=== PATIENT | female | born 1950 | race Caucasian/White ===

== ENCOUNTER 2016-08-13 17:16 | Observation (INO) ==
[2016-08-13] MEDS ORDERED: Aspirin 81 MG TAB.CHEW PO STA (17:49)
--- NOTE | 2016-08-13 17:55 | Emergency Department Note ---
Disposition Clinical Impression: Chest pain Qualifiers: Chest pain type: unspecified Qualified Code(s): R07.9 - Chest pain, unspecified Disposition: Still a Patient Condition: Fair Referrals: Erik Herzog DO [Primary Care Provider] - Forms: ED Satisfaction Letter Time of Disposition: 19:00 General Adult HPI - General Chief complaint: ED Shortness of Breath/Dyspnea Stated complaint: ETTA, low BP, dizziness Time Seen by Provider: 08/13/16 17:37 Source: patient Mode of arrival: ambulatory Limitations: no limitations Nursing Notes Reviewed: Yes Vital Signs Reviewed: Yes - History of Present Illness HPI Narrative: 65-year-old who's had a previous heart attack and comes in complaining of chest pressure and pain. Also states her blood pressures been running low although here it is in the normal range. She also states that she has a headache. 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 Location: head, chest Radiation: non-radiation Pain Severity: moderate Pain Scale: 6 Quality: burning, aching Consistency: constant Improves with: nothing Worsens with: nothing Associated symptoms: Reports: chest pain - Related Data Home Medications Medication Instructions Recorded Confirmed Aspirin 81 mg PO DAILY 12/17/14 01/06/16 Losartan Potassium [Cozaar] 100 mg PO DAILY 12/17/14 01/06/16 Escitalopram [Lexapro] 10 mg PO DAILY 06/12/15 01/06/16 Hydrochlorothiazide 25 mg PO DAILY 01/06/16 01/06/16 Previous Rx's Medication Instructions Recorded DiphenhydraMINE [Benadryl] 50 mg PO Q4HR #30 capsule 01/06/16 Famotidine [Pepcid] 20 mg PO BID #20 tablet 01/06/16 HYDROcodone/Acet 5/325 mg [[place] 1 tab PO Q6H #16 tab 01/06/16 5-325 mg] Ergocalciferol (VITAMIN D2) 50,000 unit PO QWEEK #12 capsule 03/04/16 [Vitamin D2] Cholecalciferol (Vitamin D3) 50,000 unit PO QWEEK #12 capsule 05/26/16 [Vitamin D] Levothyroxine [Synthroid] 1 tab PO DAILY #90 tablet 06/05/16 LORazepam [Ativan] 1 mg PO HS #30 tablet 04/04/17 Allergies Allergy/AdvReac Type Severity Reaction Status Date / Time gabapentin AdvReac See Verified 08/13/16 17:30 Comments All systems ED: reviewed and negative except as stated. Constitutional: Denies: fever, chills, weakness, weight change Eyes: Denies: eye pain, eye discharge, vision change ENT ED: Denies: ear pain, throat pain, dental pain, hearing loss, epistaxis, congestion, dysphagia Cardiovascular: Reports: chest pain. Denies: palpitations, dyspnea on exertion , edema, syncope Respiratory: Denies: cough, dyspnea, wheezes, hemoptysis, stridor Gastrointestinal: Denies: abdominal pain, nausea, vomiting, diarrhea, constipation, hematemesis, melena, hematochezia Genitourinary: Denies: dysuria, frequency, hematuria, discharge Musculoskeletal: Denies: back pain, neck pain, arthralgia, myalgia Integumentary: Denies: rash, abrasion, lesions Neurological: Reports: headache. Denies: weakness, numbness, paresthesias, confusion, abnormal gait, vertigo Psychiatric: Denies: anxiety, depression, suicidal thoughts, homicidal thoughts , auditory hallucinations, visual hallucinations Endocrine: Denies: fatigue Hematological/Lymphatic: Denies: easy bleeding, easy bruising Allergic/Immunologic: Denies: facial swelling, urticaria Past Medical History - Past Medical History Medical history: Reports: cancer, coronary artery disease, hyperlipidemia, hypertension, other Surgical history: Reports: angioplasty/stent, breast surgery, cholecystectomy, other (Fundoplication) Psychiatric history: Reports: depression SURGICAL FIRST ASSISTANT history: Reports: no SURGICAL FIRST ASSISTANT history - Social History Smoking Status: Former smoker Smokeless Tobacco Status: No Alcohol use: Reports: none Drug use: Reports: none Physical Exam - General Limitations: no limitations General appearance: alert, in no apparent distress - Head Head exam: atraumatic, normocephalic, normal inspection - Eye Eye exam: Present: normal appearance, PERRL, EOMI - ENT ENT exam: normal exam, normal oropharynx, mucous membranes moist - Neck Neck exam: Present: normal inspection, full ROM, trachea midline - Chest Chest inspection: Present: normal inspection, symmetric chest wall rise - Respiratory Respiratory exam: Present: normal lung sounds bilaterally - Cardiovascular Cardiovascular exam: Present: regular rate, normal rhythm, normal heart sounds - Abdominal Exam Abdominal exam: Present: soft, Non-Tender. Absent: tenderness, distention, guarding, rebound, rigidity - Extremities Exam Extremities exam: Present: normal inspection, full ROM. Absent: tenderness, pedal edema - Expanded Lower Extremity Exam Neurovascular/Tendon exam: Absent: motor deficit, sensory deficit, tendon deficit Gait: not tested/not observed - Back Exam Back exam: Present: normal inspection, full ROM. Absent: tenderness - Neurological Exam Neurological exam: Present: alert, oriented X3 Course Vital Signs Temperature 97.1 F L 08/13/16 17:28 Pulse Rate 65 08/13/16 17:28 Respiratory Rate 16 08/13/16 17:28 Blood Pressure 145/93 08/13/16 17:28 O2 Sat by Pulse Oximetry 97 08/13/16 17:28 Temperature 97.1 F L 08/13/16 17:28 Pulse Rate 55 08/13/16 18:52 Respiratory Rate 18 08/13/16 18:52 Blood Pressure 121/70 08/13/16 18:52 O2 Sat by Pulse Oximetry 96 08/13/16 18:52 Oxygen Delivery Oxygen Delivery Room Air Medical Decision Making - EKG Data EKG #1 EKG attestation: Yes I reviewed and interpreted this EKG. EKG shows normal: sinus rhythm Rate: bradycardia Rhythm: NSR When compared to previous EKG there are: no significant changes (06/12/2015) Interpretation: nonspecific ST-T wave changes S.B.A.R. - S.B.A.R. Recommendation: Recommendation based on pending studies, treatments, or consults S.B.A.R. Report Given to: Dr. Robertson S.B.AArtemio Repor Time: 19:00
[2016-08-13 19:04] LABS: Basophils # 0.1 K/mcL (0.0-0.2); Basophils % 0.7 %; Eosinophils # 0.1 K/mcL (0.0-0.6); Eosinophils % 1.7 %; Hematocrit 43.5 % (35.3-44.9); Hemoglobin 14.8 g/dL (11.5-15.4); Immature Granulocytes % 0.7 % (0-4); Lymphocytes # 1.6 K/mcL (0.6-4.6); Lymphocytes % 20.7 %; Mean Corpuscular Volume 88.1 fL (83.0-100.0); Mean Platelet Volume 10.3 fL (9.4-12.4); Monocytes # 0.7 K/mcL (0.0-1.3); Monocytes % 8.7 %; Neutrophils # 5.2 K/mcL (1.6-8.9); Platelet Count 248 K/mcL (140-400); Red Blood Count 4.94 M/mcL (3.82-4.97); Red Cell Distribution Width 12.9 % (11.5-14.5); Segmented Neutrophils % 67.5 %
[2016-08-13 19:11] LABS: INR 1.1
[2016-08-13 19:14] LABS: Activated Partial Thrombo Time 29.9 Seconds (26.0-36.0)
[2016-08-13 19:18] LABS: BUN/Creatinine Ratio 20 (6-26); Blood Urea Nitrogen 18 mg/dL (7-20); Calcium 9.4 mg/dL (8.6-10.8); Carbon Dioxide 22 mEq/L (19-29); Chloride 104 mEq/L (98-109); Glucose 85 mg/dL (70-99); Osmolality,Calculated 287 (280-300); Sodium 138 mEq/L (136-145); eGFR For African Americans > 60 (> 60); eGFR For Non-African Americans > 60 (> 60)
--- NOTE | 2016-08-13 20:55 | Emergency Department Note ---
Disposition Clinical Impression: Chest pain Qualifiers: Chest pain type: unspecified Qualified Code(s): R07.9 - Chest pain, unspecified Disposition: Admitted As Inpatient Condition: Good Referrals: Erik Herzog DO [Primary Care Provider] - Forms: ED Satisfaction Letter Time of Disposition: 20:53 General Adult HPI - General Chief complaint: ED Shortness of Breath/Dyspnea Stated complaint: ETTA, low BP, dizziness Time Seen by Provider: 08/13/16 17:37 Source: patient Mode of arrival: ambulatory Limitations: no limitations - History of Present Illness Location: head, chest Pain Scale: 6 Quality: burning, aching Improves with: nothing Worsens with: nothing Associated symptoms: Reports: chest pain - Related Data Home Medications Medication Instructions Recorded Confirmed Aspirin 81 mg PO DAILY 12/17/14 08/13/16 Losartan Potassium [Cozaar] 100 mg PO DAILY 12/17/14 08/13/16 CloNIDine HCl 0.1 mg PO BID 08/13/16 08/13/16 Cyanocobalamin (Vitamin B-12) 1,000 mcg PO DAILY 08/13/16 08/13/16 [Vitamin B12] Ergocalciferol (VITAMIN D2) 50,000 unit PO WE 08/13/16 08/13/16 [Vitamin D2] Escitalopram [Lexapro] 20 mg PO DAILY 08/13/16 08/13/16 Furosemide [Lasix] 20 mg PO BID PRN 08/13/16 08/13/16 Levothyroxine [Synthroid] 75 mcg PO QAM 08/13/16 08/13/16 Previous Rx's Medication Instructions Recorded LORazepam [Ativan] 1 mg PO HS #30 tablet 08/12/16 Allergies Allergy/AdvReac Type Severity Reaction Status Date / Time gabapentin AdvReac See Verified 08/13/16 17:30 Comments naproxen AdvReac Edema Verified 08/13/16 20:25 Constitutional: Denies: fever, chills, weakness, weight change Eyes: Denies: eye pain, eye discharge, vision change ENT ED: Denies: ear pain, throat pain, dental pain, hearing loss, epistaxis, congestion, dysphagia Cardiovascular: Reports: chest pain. Denies: palpitations, dyspnea on exertion , edema, syncope Respiratory: Denies: cough, dyspnea, wheezes, hemoptysis, stridor Gastrointestinal: Denies: abdominal pain, nausea, vomiting, diarrhea, constipation, hematemesis, melena, hematochezia Genitourinary: Denies: dysuria, frequency, hematuria, discharge Musculoskeletal: Denies: back pain, neck pain, arthralgia, myalgia Integumentary: Denies: rash, abrasion, lesions Neurological: Reports: headache. Denies: weakness, numbness, paresthesias, confusion, abnormal gait, vertigo Psychiatric: Denies: anxiety, depression, suicidal thoughts, homicidal thoughts , auditory hallucinations, visual hallucinations Endocrine: Denies: fatigue Hematological/Lymphatic: Denies: easy bleeding, easy bruising Allergic/Immunologic: Denies: facial swelling, urticaria Past Medical History - Past Medical History Medical history: Reports: cancer, coronary artery disease, hyperlipidemia, hypertension, other Surgical history: Reports: angioplasty/stent, breast surgery, cholecystectomy, other (Fundoplication) Psychiatric history: Reports: depression COMMISSIONING MANAGER history: Reports: no COMMISSIONING MANAGER history - Social History Smoking Status: Former smoker Smokeless Tobacco Status: No Alcohol use: Reports: none Drug use: Reports: none Physical Exam - General Limitations: no limitations General appearance: alert, in no apparent distress Course Vital Signs Temperature 97.1 F L 08/13/16 17:28 Pulse Rate 65 08/13/16 17:28 Respiratory Rate 16 08/13/16 17:28 Blood Pressure 145/93 08/13/16 17:28 O2 Sat by Pulse Oximetry 97 08/13/16 17:28 Temperature 97.1 F L 08/13/16 17:28 Pulse Rate 55 08/13/16 18:52 Respiratory Rate 18 08/13/16 18:52 Blood Pressure 121/70 08/13/16 18:52 O2 Sat by Pulse Oximetry 96 08/13/16 18:52 Oxygen Delivery Oxygen Delivery Room Air Medical Decision Making - Lab Data Result diagrams: 08/13/16 18:20 08/13/16 18:20 Lab Results 08/13/16 08/13/16 08/13/16 Range/Units 18:20 18:20 18:20 WBC 7.6 (4.3-11.1) K/mcL RBC 4.94 (3.82-4.97) M/mcL Hgb 14.8 (11.5-15.4) g/dL Hct 43.5 (35.3-44.9) % MCV 88.1 (83.0-100.0) fL MCH 30.0 (28.0-33.3) pg MCHC 34.0 (31.6-35.5) g/dL RDW 12.9 (11.5-14.5) % Plt Count 248 (140-400) K/mcL MPV 10.3 (9.4-12.4) fL Immature Gran % 0.7 (0-4) % Seg Neutrophils % 67.5 % Lymphocytes % 20.7 % Monocytes % 8.7 % Eosinophils % 1.7 % Basophils % 0.7 % Neutrophils # 5.2 (1.6-8.9) K/mcL Lymphocytes # 1.6 (0.6-4.6) K/mcL Monocytes # 0.7 (0.0-1.3) K/mcL Eosinophils # 0.1 (0.0-0.6) K/mcL Basophils # 0.1 (0.0-0.2) K/mcL PT (9.4-12.1) Seconds INR APTT (26.0-36.0) Seconds Sodium 138 (136-145) mEq/L Potassium 4.0 (3.5-4.5) mEq/L Chloride 104 (98-109) mEq/L Carbon Dioxide 22 (19-29) mEq/L BUN 18 (7-20) mg/dL Creatinine 0.88 (0.57-1.11) mg/dL Est GFR ( Amer) > 60 (> 60) Est GFR (Non-Af Amer) > 60 (> 60) BUN/Creatinine Ratio 20 (6-26) Glucose 85 (70-99) mg/dL Calculated Osmolality 287 (280-300) Calcium 9.4 (8.6-10.8) mg/dL Troponin I 0.00 (0-0.03) ng/mL B-Natriuretic Peptide (0-100) pg/mL 08/13/16 08/13/16 Range/Units 18:20 18:20 WBC (4.3-11.1) K/mcL RBC (3.82-4.97) M/mcL Hgb (11.5-15.4) g/dL Hct (35.3-44.9) % MCV (83.0-100.0) fL MCH (28.0-33.3) pg MCHC (31.6-35.5) g/dL RDW (11.5-14.5) % Plt Count (140-400) K/mcL MPV (9.4-12.4) fL Immature Gran % (0-4) % Seg Neutrophils % % Lymphocytes % % Monocytes % % Eosinophils % % Basophils % % Neutrophils # (1.6-8.9) K/mcL Lymphocytes # (0.6-4.6) K/mcL Monocytes # (0.0-1.3) K/mcL Eosinophils # (0.0-0.6) K/mcL Basophils # (0.0-0.2) K/mcL PT 12.0 (9.4-12.1) Seconds INR 1.1 APTT 29.9 (26.0-36.0) Seconds Sodium (136-145) mEq/L Potassium (3.5-4.5) mEq/L Chloride (98-109) mEq/L Carbon Dioxide (19-29) mEq/L BUN (7-20) mg/dL Creatinine (0.57-1.11) mg/dL Est GFR ( Amer) (> 60) Est GFR (Non-Af Amer) (> 60) BUN/Creatinine Ratio (6-26) Glucose (70-99) mg/dL Calculated Osmolality (280-300) Calcium (8.6-10.8) mg/dL Troponin I (0-0.03) ng/mL B-Natriuretic Peptide 23 (0-100) pg/mL Attestation Statement - Attestation Attestation: Dr Robertson note: Pt re evaluated s/p sign out from Dr García; pain free; bp stable; chronic bradycardia, on Clonidin and Losartan; labs stable; accepted for admission to Dr Gaming at 8:50 pm;
[2016-08-13] MEDS ORDERED: Naloxone 0.4 MG/ML INJ IVP PRN (23:22)
[2016-08-13] MEDS ORDERED: Ondansetron 4 MG/2 ML VIAL IVP PRN (23:22)
[2016-08-13] MEDS ORDERED: Ibuprofen 400 MG TABLET PO PRN (23:22)
[2016-08-13] MEDS ORDERED: *HR* HYDROcodone/Acet 5/325 mg TABLET PO PRN (23:22)
[2016-08-13] MEDS ORDERED: *HR* Morphine 2 MG/ML SYRINGE IVP PRN (23:22)
[2016-08-13] MEDS ORDERED: Nitroglycerin 0.4 MG TAB.SUBL SL PRN (23:54)
--- NOTE | 2016-08-13 23:54 | Internal Med History&Physical ---
<Raoul Be - Last Filed: 08/14/16 02:52> Date of Encounter: 08/14/16 Time of Encounter: 23:15 Assessment and Plan (1) Hypotension Current visit: Yes Status: Acute Patient presents describing symptoms of hypotension, as well as reporting hypotension one blood pressure taken at home. Recently started on spironolactone, but stopped 2 days ago. Patient also placed on clonidine several months ago. Patient complains of blurriness of vision, lightheadedness , dizziness, headache, chest discomfort. These are likely related to patient hypotension, we given description of chest pressure being similar to that of her previous [place] will further evaluate. Patient appeared to be positive and orthostatics, with drop in diastolic blood pressure and return of symptoms. Patient describes chest pressure as similar to that of previous AZ. She reports her last catheterization was in 2011 was clean at that time, she had received 1 stent previously in 2007. Given length of time since prior catheterization, will obtain stress test to further evaluate. 500 mL normal saline bolus We will obtain urinalysis Tylenol as needed for headache We will hold patient spironolactone We will continue patient clonidine for concern of rebound hypertension We will check TSH We will obtain an echocardiogram and exercise stress test given the concerns of coronary artery disease We will continue to trend troponins We will check CBC, CMP, magnesium, phosphorus in the morning Continue to monitor patient on telemetry and pulse oximetry Qualifiers: Hypotension type: unspecified hypotension type Qualified Code(s): I95.9 - Hypotension, unspecified (2) Chest pain Current visit: Yes Status: Acute Plan as above Qualifiers: Chest pain type: unspecified Qualified Code(s): R07.9 - Chest pain, unspecified (3) Hypothyroid Current visit: No Status: Acute Continue home Synthroid Qualifiers: Hypothyroidism type: subclinical iodine-deficiency Qualified Code(s): E02 - Subclinical iodine-deficiency hypothyroidism (4) DVT prophylaxis Current visit: Yes Status: Acute 5000 units heparin subcutaneous 3 times a day Internal Medicine - H&P: HPI Chief complaint: Hypotension, dizziness, chest pressure Admitted From: Home Plans for Post Hospital Care: Home History of present illness: Ms. Mcguire is a 65 year old female with prior medical history significant for breast cancer, CAD with prior AZ in 2007, hypertension, lichen planus, cholecystectomy, and previous fundoplication presents to [facility] after over 24 hours of lightheadedness, dizziness, hypotension, and chest pressure. With these a Suches also been having a headache, blurry vision, and weakness. These symptoms are all exacerbated by standing up too quickly. She describes the headache as 7/10 in severity and located behind both of her eyes. She describes the chest pain as substernal, 6/10 severity, nonradiating, not associated with nausea, numbness, tingling, or diaphoresis. She does see the chest pain is similar to the pain she had when she had a heart attack in 2007. She says nothing has made it better and nothing has made it worse, but has been constant the last 24+ hours. She states that recently she has had decreased appetite for unknown reason, but this has led her to decreased by mouth. Recently, she has had some changes in blood pressure medication that prompted her to be very vigilant at home of her blood pressures. She states this started 2 months ago when she found she had a blood pressure 157/67. She called her ambulette driver (who she had been seen because of her palpitations) and was placed on twice a day clonidine at that time. Her next appointment was with her PCP a month and half later and she was started on spironolactone at that time. This was about 2 weeks ago, when she began having symptoms 24+ hours ago she had called her PCP and spironolactone was stopped. Since that point in time she is seen and no improvement in her symptoms. Past Med Surg Social Fam HX - Past Medical History Medical history: cancer, coronary artery disease, hyperlipidemia, hypertension, other Psychiatric history: depression - Past Surgical History Surgical History: angioplasty/stent, breast surgery, cholecystectomy, other - Social History Smoking Status: Former smoker Smokeless Tobacco Status: No Alcohol use: none Drug use: none - Family History Mother Hx Family Cancer: Yes (breast) Sister Hx Family Cancer: Yes (breast lymphoma) Internal Medicine - H&P: Meds Aspirin 81 mg PO DAILY 12/17/14 [History] Losartan Potassium [Cozaar] 100 mg PO DAILY 12/17/14 [History] LORazepam [Ativan] 1 mg PO HS #30 tablet 08/12/16 [Rx] CloNIDine HCl 0.1 mg PO BID 08/13/16 [History] Cyanocobalamin (Vitamin B-12) [Vitamin B12] 1,000 mcg PO DAILY 08/13/16 [History ] Ergocalciferol (VITAMIN D2) [Vitamin D2] 50,000 unit PO WE 08/13/16 [History] Escitalopram [Lexapro] 20 mg PO DAILY 08/13/16 [History] Furosemide [Lasix] 20 mg PO BID PRN 08/13/16 [History] Levothyroxine [Synthroid] 75 mcg PO QAM 08/13/16 [History] Allergies gabapentin Adverse Reaction (Verified 08/13/16 17:30) See Comments swelling and lymphedema naproxen Adverse Reaction (Verified 08/13/16 20:25) Edema - Constitutional Constitutional: anorexia, weakness, no chills, no fever(s), no weight loss - EENT Eyes: as per HPI, blurry vision, no loss of vision, no pain, no photophobia Nose, mouth and throat: no dysphagia, no nasal discharge, no neck pain, no sore throat - Cardiovascular Cardiovascular ROS IM: as per HPI, chest pain, lightheadedness, palpitations, no diaphoresis, no dyspnea, no syncope - Respiratory Respiratory: no cough, no dyspnea, no wheezing, no excessive phlegm production - Gastrointestinal Gastrointestinal: as per HPI, abdominal pain (chronic), constipation, no diarrhea, no hematemesis, no hematochezia, no melena, no nausea, no vomiting - Genitourinary Genitourinary: no dysuria, no hematuria - Musculoskeletal Musculoskeletal ROS IM: no numbness, no tingling - Integumentary Integumentary IM: no rash, no unusual bruising - Neurological Neurological ROS: no confusion, no convulsions, no focal weakness, no numbness, no tingling, no tremor(s) - Hematologic/Lymphatic Hematologic/Lymphatic: no easy bruising - Constitutional Vitals: Temp Pulse Resp BP Pulse Ox 98.0 F 61 16 103/69 93 08/13/16 23:26 08/13/16 23:26 08/13/16 23:26 08/13/16 23:26 08/13/16 23:26 Exam: General: Cooperative, pleasant, no acute distress, alert and oriented 3, answers questions appropriately, return of symptoms when standing during check orthostatic vitals Head: Normocephalic, atraumatic Eye: Conjunctiva pink, sclera anicteric, EOMI, PERRL Neck: Supple, trachea midline, mucosa moist, no erythema or exudates in oropharynx Respiratory: No accessory muscle usage, clear to auscultation bilaterally, no wheezes/rhonchi/rales appreciated Cardiovascular: Bradycardia, S1 and S2 present, no murmurs/rubs/gallops/clicks appreciated GI/abdominal: Nondistended, diffuse, mild tenderness, soft, normal bowel sounds , no peritoneal signs Extremities: No calf tenderness, noncyanotic, no pedal edema appreciated, warm, lower extremity pulses palpable and symmetrical Neurological: Alert and oriented 3, no facial droop, no focal deficits Skin: Dry, intact, normal color Internal Med - H&P Results - Labs CBC & Chem 7: 08/13/16 18:20 08/13/16 18:20 <Rosanna Boykin - Last Filed: 08/14/16 10:41> Date of Encounter: 08/13/16 Internal Medicine - H&P: HPI History of present illness: Ms. Mcguire is a 65 year old female All Systems PM: A 10-system review of systems was performed and is negative for pertinent findings except as documented above in the HPI. - Constitutional Vitals: Temp Pulse Resp BP Pulse Ox 97.9 F 55 16 123/84 96 08/14/16 04:26 08/14/16 04:26 08/14/16 04:26 08/14/16 04:26 08/14/16 04:26 Internal Med - H&P Results - Labs CBC & Chem 7: 08/13/16 18:20 08/13/16 18:20 Labs: Cardiac Enzymes 08/14/16 08/14/16 Range/Units 00:35 06:26 Troponin I 0.00 0.00 (0-0.03) ng/mL - Attending Attestation I performed a history and physical examination of the patient and discussed management with the resident. I reviewed the residents note and agree with the documented findings and plan of care, with additions as below. 65 year old female with prior medical history significant for CAD with prior AZ in 2007, hypertension presented with chest pressure, dizziness and headache. O/ E: cardiac; RRR; No gross localizing deficits. EKG: Sinus bradycardia with heart rate of 59/min. CXR: unremarkable. 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 A/P: chest pain: trend troponins; telemetry monitoring. Stress test. Hypotension : orthostatic vitals; IV fluids; hold antihypertensives. Headache is likely due to volume depletion. Possible meningioma Pt has h/o breast cancer. Will consult oncologist for advice for further advice, to exclude metastatic disease.
[2016-08-14] MEDS ORDERED: 0.9 % Sodium Chloride 500 ML IVC ONE ×2 (00:11→01:22)
[2016-08-14 02:13] LABS: Chol/HDL Ratio 5.2 (0-4.9); Magnesium 2.1 mg/dL (1.6-2.6); Phosphorous 3.7 mg/dL (2.3-4.7)
[2016-08-14 02:35] LABS: Thyroid Stimulating Hormone 12.076 mcIU/mL (0.350-4.840)
[2016-08-14] MEDS: *HR* Heparin 5,000 UNIT/ML VIAL SQ SCH ×3 (05:43→21:34)
[2016-08-14] MEDS: Pantoprazole 40 MG VIAL IVP SCH (05:43)
[2016-08-14] MEDS: *HR* Morphine 2 MG/ML SYRINGE IVP PRN ×2 (07:05→10:31)
[2016-08-14 07:27] LABS: Thyroid Stimulating Hormone 15.466 mcIU/mL (0.350-4.840)
[2016-08-14] MEDS ORDERED: Regadenoson 0.4 MG/5 ML SYRINGE IVP ONE ×2 (08:09→08:10)
--- NOTE | 2016-08-14 10:03 | ECHO - Doppler Report ---
Echocardiogram Name: Ten Mcguire Date of Study: 08/14/2016 Date: 1950 Ht: 63.0 in Medical Record#: [id number] Age: 65 Wt: 196.0 lb Gender: Female BSA: 1.92 Order #: [id number] Location: [facility] Room #: [id number] Reading Physician: Marii Fang DO Stock Broker Supervisor: Maury Nevarez Ordering Physician: Raoul Be DO Primary Physician: Indications: Acute coronary syndrome Impressions: LVEF 65%. Normal LV wall motion. Normal left ventricular size and systolic function. There is evidence of mild diastolic dysfunction of the left ventricle. Normal right ventricular size and function. Mild mitral regurgitation. No pulmonary hypertension. Left Ventricular Wall Motion: Rest Echo Findings All wall segments showed normal motion. Findings: Study Quality * Technically adequate exam. ECG Findings * Sinus bradycardia. Left Ventricle * Normal LV chamber size, wall thickness and function. * Mild left ventricular diastolic dysfunction. * LVEF 65%. Mitral Valve * Normal mitral valve structure. * No mitral stenosis. * Mild mitral regurgitation. Aorta * Normally sized aortic root. Aortic Valve * No aortic regurgitation. * Aortic valve not well visualized. * No aortic stenosis. Tricuspid Valve * Tricuspid valve not well visualized. * No tricuspid regurgitation. * Estimated RA pressure is 3 mmHg. * No pulmonary hypertension. Pulmonic Valve * Pulmonic valve is not well visualized. * No pulmonic stenosis. * Trace pulmonic regurgitation. Pulmonary Artery * Pulmonary artery not well visualized. Right Ventricle * Normal right ventricular structure and function. Right Atrium * Normal right atrial size. Left Atrium * Moderately dilated left atrium. Interatrial Septum * No evidence of PFO by color Doppler. IVC * Normal IVC dimensions and inspiratory collapse. Pericardium * There is no pericardial effusion present. History Hypertension Family History of CAD History of CAD/PTCA Myocardial Infarction Coronary Artery Bypass Graft 07/28/2013 a Previous Echo was performed. Measurements: BP: 123/ 84 2D Normal Values RVIDd: 3.24 cm <2.7 cm IVSd: 1.20 cm 0.6 - 1.0 cm LVIDd: 5.10 cm 3.7 - 5.6 cm LVPWd: .91 cm 0.6 - 1.1 cm LVIDs: 2.76 cm 1.5 - 3.6 cm AO: 2.30 cm < 4.0 cm LA: 4.10 cm 2.0 - 4.0cm %FS: 45.90 cm >25 % LA volume: 76 Mitral Valve Peak E:.58 m/sec Peak A:.59 m/sec E/A Ratio:1 Peak E' Lat David:10.9 cm/s Peak E' Med David:8.58 cm/s E/E' Lat Ratio:5.3 E/E' Med Ratio:6.8 Tricuspid Valve TV Regurg Peak Grad: 7.00mmHg TV Regurg Peak David: 1.34m/sec Updated by Marii Fang on 08/14/2016 9:58:24 AM electronically signed on 08/14/2016 9:59:12 AM with status of Final Wall Motion [place]: 1=Normal, 2=Hypokinesis, 3=Akinesis, 4=Dyskinesis, 5=Aneurysmal, 6=Hyperkinetic, X=Not Visualized (Blank)=Missing
[2016-08-14] MEDS: Acetaminophen 325 MG TABLET PO PRN ×2 (10:31→20:17)
[2016-08-14] MEDS: cloNIDine HCl 0.1 MG TABLET PO SCH ×2 (10:31→21:34)
[2016-08-14] MEDS: Aspirin 81 MG TAB.CHEW PO SCH (10:32)
--- NOTE | 2016-08-14 11:37 | Nuclear Medicine Stress Report ---
Regadenoson Nuclear Stress Name: Ten Mcguire Date of Study: 08/14/2016 Date: 1950 Ht: 63.0 in Medical Record#: [id number] Age: 65 Wt: 196.0 lb Gender: Female Order #: [id number] Location: [facility] Room: [facility] Supervising Provider: Chon Sage CNP Reading Physician: Marii Fang DO Ordering Physician: Marlee Reynolds CNP Primary Care Physician: Same as Ordering Provider Stress Technologist: Ines Woodruff, CHERRY Application Support Technician: Vipin Welsh Indications: Chest Pain, Shortness of breath Impression: Perfusion imaging was negative for ischemia or infarct. No appreciable change in pharmacologic ECG from baseline. Patient had 7/10 chest pain prior to start of study, increasing to 10/10 with pharmacologic infusion which is not diagnostic. Normal gated EF. Recommend clinical correlation. History: Hypertension Prior PCI Stress Test Summary: Stress Test Type: Pharmacologic Baseline Information: Initial Heart Rate: 54 Blood Pressure: 140/88 Stress Information: Test Terminated Due to (primary): As per protocol Maximum Blood Pressure: 138/68 Maximum Heart Rate: 74 Percent Maximum Heart Rate Achieved: 47 Double Product: [id number] METS Reached: 1 Symptoms: Chest pain Nuclear Summary: SPECT myocardial perfusion imaging using Tc99m Sestamibi given intravenously was performed at rest and following cardiac stress testing. The resting images were obtained following initial dose of 11.1 mCi. Following stress an additional dose of 34.3 mCi was given at peak exercise or 30 seconds post regadenoson infusion. Medication Given: Time Medication Dose Units Route Findings: Stress Note * Resting ECG demonstrated normal sinus rhythm with flat ST segments and abnormal T waves throughout. * No arrhythmias were noted during stress. * No appreciable change in pharmacologic ECG from baseline. * Patient described 7/10 chest pain prior to study, increasing to 10/10 during pharmacologic stress. Hemodynamic responses * Normal hemodynamic responses to pharmacologic stress. Study Quality * Study quality is good. Gated EF > 70% * Gated EF > 70%. Left Ventricle * The left ventricle is not dilated. TID * No evidence of transient ischemic dilatation. Lung Uptake * There is no evidence of increase lung uptake. NORMALS * Normal wall motion. * Normal segmental perfusion in stress. * Normal Segmental Perfusion in rest. Updated by Marii Fang on 08/14/2016 11:29:31 AM electronically signed on 08/14/2016 11:31:41 AM with status of Final
--- NOTE | 2016-08-14 13:27 | Electrocardiograph Report ---
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
--- NOTE | 2016-08-14 13:37 | Electrocardiograph Report ---
[place] [address] Test Date: 2016-08-14 Pat Name: Ten Mcguire Department: 113 Room: 3B Gender: F System Consultant: : 1950 Requested By: Marlee Reynolds Order Number: [id number] Reading MD: Chuck Branham MD Measurements Intervals [place] Rate: 48 P: 55 OR: 122 QRS: 21 QRSD: 86 T: 6 QT: 444 QTc: 410 Interpretive Statements SINUS BRADYCARDIA WITH SINUS ARRHYTHMIA Electronically Signed On 08-14-2016 13:36:17 EDT by Chuck Branham MD
[2016-08-14] MEDS ORDERED: Cosyntropin 250 MCG/2 ML VIAL IVP ONE (20:27)
--- NOTE | 2016-08-14 20:36 | Internal Med Progress Note ---
Date of Encounter: 08/14/16 Time of Encounter: 17:45 (x45 minutes) - Assessment and plan (1) Headache Current Visit: Yes Status: Acute Assessment and plan: Patient endorsing intermittent, severe headaches over the past 2 days. She states that she never gets headaches in the past. Headaches are associated with blurred vision in the feeling that she is off balance with ambulation. Head CT negative for acute processes and revealing her meningioma. Concern for possible metastasis of her breast cancer that she had approximately 4 years ago. Spoke to oncology who knows this patient very well, will obtain a brain MRI. ITS Impressions Head CT 08/13/16 17:50 IMPRESSION: No acute intracranial abnormality. Probable 14 mm meningioma adjacent to the tentorium cerebelli D/ / Mike Gama MD / Mike Gama MD Interpreting Provider: Mike Gama MD (2) History of Pippa fundoplication Current Visit: Yes Status: Chronic (3) Calcified cerebral meningioma Current Visit: Yes Status: Chronic (4) Vertigo Current Visit: Yes Status: Resolved Assessment and plan: Currently asymptomatic, brain MRI pending. (5) Anorexia Current Visit: Yes Status: Acute Assessment and plan: Patient stating she has not been able to eat for the past 2 weeks. She denies nausea or vomiting but states she simply does not have an appetite. (6) Seroma of breast Current Visit: No Status: Chronic (7) Hypothyroid Current Visit: No Status: Chronic Assessment and plan: TSH elevated, free T4 normal. Synthroid dosage increased. (8) Chest pain Current Visit: Yes Status: Ruled-out Assessment and plan: Patient currently endorsing left-sided chest pain and epigastric pain. She states this is normal then her regular reflux pain. ACS ruled out. Echocardiogram unremarkable with ejection fraction of 65%. Stress test negative for ischemia or infarct. We will continue to investigate other causes that are noncardiac in etiology. Qualifiers: Chest pain type: unspecified Qualified Code(s): R07.9 - Chest pain, unspecified (9) DVT prophylaxis Current Visit: Yes Status: Acute Assessment and plan: Subcutaneous heparin (10) Hypotension Current Visit: Yes Status: Resolved Assessment and plan: Patient stating she was started on clonidine one month ago for her diastolic blood pressures being in the 130s. Then approximately 2 weeks ago, she was started on spironolactone. She is currently normotensive but her blood pressures have been fluctuating since admission. Orthostatic vital signs unremarkable. Currently, she is only on clonidine 0.1 mg twice a day. Holding her losartan and spironolactone. Unclear causation at this time. ACTH stem test and aldosterone levels are pending. Renal function is normal. Qualifiers: Hypotension type: unspecified hypotension type Qualified Code(s): I95.9 - Hypotension, unspecified (11) Breast cancer, right Current Visit: No Status: Chronic Assessment and plan: Oncology has been brought on board as she is known well to their service. Concerning symptoms include severe headache 2 days associated with imbalance and vision changes. Brain MRI pending. Patient is also anorexic and has not been able to refill last 2 weeks so there is also a concern for possible metastases to her brain and possibly to her abdomen. Abdominal CT also pending. Her breast cancer has been complicated by lymphedema, chronic seroma of her breast, and a rather sizable blood clot after her breast surgery. - Subjective Interval history: Patient seen and examined. On examination, patient saying she feels "no better than when I came here." She states she continues to have intermittent, severe headaches that started 2 days ago. She states she continues to feel lightheaded and dizzy intermittently. She also continues to have left-sided chest pain and epigastric abdominal pain. She states she continues to feel off balance. She is also endorsing a severe dry mouth. - Constitutional Vitals: Temp Pulse Resp BP Pulse Ox 98.2 F 51 12 111/72 97 08/14/16 18:59 08/14/16 18:59 08/14/16 18:59 08/14/16 18:59 08/14/16 18:59 General appearance: Present: A&O X 3, pleasant, no acute distress, answers questions appropriately - Head Head exam: Present: atraumatic, normocephalic - Eye Eye exam: Present: EOMI, PERRL, conjuntiva pink, sclera anicteric Pupils: Present: PERRL - Neck Neck exam general surgery: Present: supple, trachea midline. Absent: lymphadenopathy - Respiratory Respiratory exam: Present: chest wall tenderness, CTAB. Absent: accessory muscle use, rales, respiratory distress, rhonchi, wheezes - Cardiovascular Cardiovascular exam: Present: RRR, +S1, +S2. Absent: diastolic murmur, gallop, rubs, systolic murmur - GI/Abdominal GI/Abdominal exam: Present: normal bowel sounds, soft, tenderness (epigastric), no peritoneal signs. Absent: distended - Extremities Exam Extremities exam: Present: warm, radial pulses palpable and symetrical. Absent : calf tenderness, cyanotic, pedal edema - Neurological Exam Neurological exam: Present: alert, CN II-XII intact, oriented X3, no focal deficits, strengths equal and symetr throughout. Absent: pronater drift, facial droop, speech deficit - Expanded Neurological Exam Neurological exam expanded: Present: protecting the airway Patient oriented to: Present: person, place, time Speech: Present: fluid speech Cranial Nerves: EOM's intact PM: Normal Neuro motor strength exam: LUE: 5, RUE: 5, LLE: 5, RLE: 5 Coma Scale Eye Opening: Spontaneous Coma Scale Motor Response: Obeys Commands Coma Scale Verbal Response: Oriented Coma Scale Total: 15 - Skin Skin exam: Present: dry, intact, pallor, warm Internal Medicine: Result - Labs CBC & Chem 7: 08/13/16 18:20 08/13/16 18:20 Labs: Cardiac Enzymes 08/14/16 08/14/16 Range/Units 00:35 06:26 Troponin I 0.00 0.00 (0-0.03) ng/mL - ABG Interpretation ABG results: PT/INR, D-dimer PT 12.0 Seconds (9.4-12.1) 08/13/16 18:20 - VTE Reasons for not Prescribing Prophylaxis: Treatment not Indicated - Low risk for VTE Consult Discharge Plan - Plan Referrals: Erik Herzog DO [Primary Care Provider] -
[2016-08-14] MEDS: *HR* LORazepam 1 MG TABLET PO SCH (21:34)
[2016-08-14 23:18] LABS: Bilirubin,Urine Negative (Negative); Blood,Urine Negative (Negative); Clarity,Urine Clear (Clear); Color,Urine Yellow (Yellow); Glucose,Urine (UA) Normal (Normal); Ketones,Urine Negative (Negative); Leukocyte Esterase,Urine Small (Negative); Nitrite,Urine Negative (Negative); Protein,Urine Negative (Neg-Trace); Specific Gravity,Urine > 1.030 (1.010-1.025); Urobilinogen,Urine Normal (Normal)
[2016-08-14 23:20] LABS: Bacteria,Urine None Seen per hpf (None-Few); Hyaline Casts,Urine None Seen per lpf (None-Few); Squamous Epithelial Cell,Urine Many per lpf (None-Few); WBC,Urine 15-30 per hpf (0-3)
[2016-08-15] MEDS: *HR* Morphine 2 MG/ML SYRINGE IVP PRN ×3 (00:03→12:39)
[2016-08-15] MEDS: Pantoprazole 40 MG VIAL IVP SCH (06:23)
[2016-08-15] MEDS: *HR* Heparin 5,000 UNIT/ML VIAL SQ SCH ×3 (06:23→21:09)
[2016-08-15] MEDS: cloNIDine HCl 0.1 MG TABLET PO SCH ×2 (08:35→21:03)
[2016-08-15] MEDS: Aspirin 81 MG TAB.CHEW PO SCH (08:36)
[2016-08-15] MEDS ORDERED: Ketorolac 30 MG/ML VIAL IVP ONE (16:05)
[2016-08-15] MEDS ORDERED: Prochlorperazine 10 MG/2 ML VIAL IVP ONE (16:05)
--- NOTE | 2016-08-15 16:37 | Oncology Inp Consult Note ---
<Camilo Dixon Jr - Last Filed: 08/15/16 16:51> Date of Encounter: 08/15/16 Time of Encounter: 15:45 Assessment and Plan (1) History of breast cancer Status: Acute Assessment and plan: The patient is a very pleasant 64-year-old female well-known to the [facility]. The patient had diagnosis of right breast cancer in August 2012. She was given radiation only without chemotherapy, and she had a lumpectomy as well. Treated by Dr. Victor. She is now on 6 month surveillance visits for her breast cancer. The last visit was 02/24/2016, the patient was seen by me. Next surveillance visit is scheduled for 08/21/2016 here at the cancer center with Dr Victor. Her mammogram in 2016 looks stable, with no new areas of concern. She gets diagnostic mammograms annually. She was admitted to the hospital on unit 3B for hypertensive emergency, chest pain, headache. Her echocardiogram and cardiac stress test were unremarkable. We were consulted due to concerns that some of the symptoms could be related back to her breast cancer as a recurrence. The brain MRI shows meningioma, which is chronic and stable. There is no new metastatic disease or organic issues. The patient also received abdominal CT, because she was complaining of abdominal pain. She has a long history of GERD with dilations by EGD. Images show no new acute intra-abdominal process. My recommendation to the hospitalist today, Marlee Garcia, was to get an inpatient consult with neurology to review MRI of the brain and the meningioma. Patient still has headaches despite blood pressure at stable numbers currently. Based on clinical presentation, lab work, and imaging studies, the patient's current she complaints are not a recurrence of the patient's breast cancer. I spoke to the patint in length about treatment and diagnostic plan. Dr Marquez is commercial solar sales consultant and he will assess the patient as well. - Data of Consult Patient: known to practice within the last 3 years Consult date: 08/15/16 Requesting Physician: Marlee Aldana Primary Care Provider: Erik Herzog - Consult Narrative Reason for consult: breast cancer history with headache/abdominal pain History of present illness: Ms. Mcguire is a 65 year old female well known to [facility] with medical oncologist Dr Heena Victor. She has a history of Right breast cancer, T1b N0 M0, stage I, 9 mm tumor, one lymph node negative, grade 2, clear margins. She had KAREN catheter, but removed due to swelling. She had a lumpectomy. She finished external beam radiation in 30 days, 11/30/2012. No chemotherapy was needed. She was started on Aromasin. Stopped due to arthralgia then switched to letrozole which she is taking. She had some hematoma in the right breast area and fluid collection which was drained January 14, 2013 and is a chronic seroma from original surgery with Dr Adam De Los Santos. The BRCA 1 and 2 negative. MRI bilateral breast w/wo contrast on 01/29/15 shows category 2 no evidence for malignancy She was evaluated by Dr. Mills at [facility] but thousand 15. Right breast ultrasound and mammograms showed category 3 possible fat necrosis but no major fluid collection or suspicious lesion. Reassurance was given and advised to use the support bra which she does. She is currently on a 6 month surveillance schedule with mammograms every 12 months. Mammogram right breast ultrasound category to 10/18/2015. She still has some pain in the right axillary fold with some soft tissue prominence but no major fluid. Last seen in clinic on 02/24/16 by Deandre Dixon CNP. Mammogram right breast ultrasound category to 10/18/2015. She still has some pain in the right axillary fold with some soft tissue prominence but no major fluid. The patient was admitted to unit 3B for hypertensive emergence, chest pain and headache. Oncology consulted due to her history and concerns these symptoms could be recurrence of her breast cancer. Past Med Surg Social Fam HX - Past Medical History Medical history: cancer, coronary artery disease, hyperlipidemia, hypertension, other Psychiatric history: depression - Past Surgical History Surgical History: angioplasty/stent, breast surgery, cholecystectomy, other - Social History Smoking Status: Former smoker Smokeless Tobacco Status: No Alcohol use: none Drug use: none - Family History Mother Hx Family Cancer: Yes (breast) Sister Hx Family Cancer: Yes (breast lymphoma) Medications and Allergies Aspirin 81 mg PO DAILY 12/17/14 [History] LORazepam [Ativan] 1 mg PO HS #30 tablet 08/12/16 [Rx] CloNIDine HCl 0.1 mg PO BID 08/13/16 [History] Cyanocobalamin (Vitamin B-12) [Vitamin B12] 1,000 mcg PO DAILY 08/13/16 [History ] Ergocalciferol (VITAMIN D2) [Vitamin D2] 50,000 unit PO WE 08/13/16 [History] Escitalopram [Lexapro] 20 mg PO DAILY 08/13/16 [History] Furosemide [Lasix] 20 mg PO BID PRN 08/13/16 [History] Levothyroxine [Synthroid] 75 mcg PO QAM 08/13/16 [History] Allergies gabapentin Adverse Reaction (Verified 08/13/16 17:30) See Comments swelling and lymphedema naproxen Adverse Reaction (Verified 08/13/16 20:25) Edema Constitutional: Present: fatigue Neurological: Present: dizziness, headache(s) Oncology - Exam - Constitutional Vitals: Temp Pulse Resp BP Pulse Ox 97.8 F 66 17 111/71 97 08/15/16 14:50 08/15/16 14:50 08/15/16 14:50 08/15/16 14:50 08/15/16 14:50 General appearance: cooperative, mild distress - Head Head exam: Present: atraumatic, normal inspection - Eye Eye exam: Present: normal appearance, PERRL - ENT ENT exam: Present: mucous membranes dry - Neck Neck exam: Present: full ROM, normal inspection - Respiratory Respiratory exam: Present: CTAB - Cardiovascular Cardiovascular exam: Present: RRR, +S1, +S2 - GI/Abdominal GI/Abdominal exam: Present: soft, tenderness - Extremities Exam Extremities exam: Present: full ROM, normal inspection - Neurological Exam Neurological exam: Present: alert, oriented X3, no focal deficits - Psychiatric Psychiatric exam: Present: normal affect, normal mood Oncology - Results - Labs Labs: Urine 08/14/16 Range/Units 23:00 Urine Color Yellow (Yellow) Urine Clarity Clear (Clear) Urine pH 6.0 (5.0-8.0) pH Units Ur Specific Mallie > 1.030 H (1.010-1.025) Urine Protein Negative (Neg-Trace) mg/dL Urine Glucose (UA) Normal (Normal) mg/dL Consult Discharge Plan - Plan Additional Instructions: Follow-up with primary care provider as scheduled. Referrals: Jaylin Bradford CNP [Advanced Practice Nurse] - 08/20/16 1:00 pm Erik Herzog DO [Primary Care Provider] - (appointment web requested ) <PratimakelsieCristopher Xander - Last Filed: 08/17/16 06:49> Date of Encounter: 08/15/16 - Data of Consult Requesting Physician: Marlee Aldana Primary Care Provider: Erik Herzog - Consult Narrative History of present illness: Ms. Mcguire is a 65 year old female Oncology - Exam - Constitutional Vitals: Temp Pulse Resp BP Pulse Ox 97.8 F 57 16 133/78 96 08/16/16 06:58 08/16/16 06:58 08/16/16 06:58 08/16/16 06:58 08/16/16 07:50 - Attending Attestation I saw and personally examined Ms. Medrano at bedside today and reviewed the chart for details of ongoing care by hospital team. I verified/agree with the history and physical exam findings documented by Deandre Dixon CNP above. I personally reviewed and interpreted the lab data and imaging studies pertaining to this encounter as appropriate. To summarize, she is a patient of the cancer center followed for previously treated right breast cancer for which she has had resection followed by adjuvant radiotherapy. She did not tolerate adjuvant endocrine therapy and has been monitored subsequently with no evidence of breast cancer recurrence on her last mammogram October 2015. She is coming up on 4 years from her initial diagnosis. She is currently hospitalized with what appears to be severe exacerbation of known migraine. We have been consulted due to concern about possible brain metastasis from her underlying breast cancer as a contributing factor. She has had extensive workup including brain imaging which was negative for metastasis. She has made significant improvement with ongoing supportive measures and is planned for discharge later today. She does have a follow-up appointment with Dr. Victor in the near future. At time of my evaluation, she is completely asymptomatic and in good spirits. She confirms complete resolution of her headache symptoms and is eager for discharge. Based on her workup so far, no evidence of contribution from her underlying breast cancer to her current presentation. I agree with plan for discharge and she will return to my established oncology follow-up for breast cancer surveillance as scheduled. Thanks for allowing us to see her while in house. Please call as needed with any other oncologic questions that may arise prior to discharge.
--- NOTE | 2016-08-15 18:46 | Internal Med Progress Note ---
Date of Encounter: 08/15/16 Time of Encounter: 17:00 - Assessment and plan (1) Headache Current Visit: Yes Status: Acute Assessment and plan: Headache has not abated for the last 3 days. Brain MRI negative for acute processes in reveals a stable meningioma. Will get migraine cocktail and assess her response. She is requesting to see a neurologist, neurology brought on board. No current vision changes or balance issues. ITS Impressions Brain MRI 08/15/16 09:05 IMPRESSION: 1. No evidence of acute intracranial abnormality. No evidence of intracranial metastatic disease. 2. Again seen is enhancing extra-axial mass along the medial right cerebellar tentorium compatible with meningioma. 3. Evidence of mild chronic microvascular ischemic changes. D/ / 08/15/2016 12:04:27 Dago Vasquez MD / lana Interpreting Provider: Dago Vasquez MD 08/14/16 Patient endorsing intermittent, severe headaches over the past 2 days. She states that she never gets headaches in the past. Headaches are associated with blurred vision in the feeling that she is off balance with ambulation. Head CT negative for acute processes and revealing her meningioma. Concern for possible metastasis of her breast cancer that she had approximately 4 years ago. Spoke to oncology who knows this patient very well, will obtain a brain MRI. ITS Impressions Head CT 08/13/16 17:50 IMPRESSION: No acute intracranial abnormality. Probable 14 mm meningioma adjacent to the tentorium cerebelli D/ / Mike Gama MD / Mike Gama MD Interpreting Provider: Mike Gama MD (2) History of Pippa fundoplication Current Visit: Yes Status: Chronic (3) Calcified cerebral meningioma Current Visit: Yes Status: Chronic (4) Vertigo Current Visit: Yes Status: Resolved Assessment and plan: Currently asymptomatic, brain MRI unremarkable (5) Anorexia Current Visit: Yes Status: Acute Assessment and plan: Patient stating she has not been able to eat for the past 2 weeks. She denies nausea or vomiting but states she simply does not have an appetite. She has been able to eat small amounts here without vomiting. She continues to endorse decreased appetite and nausea. Abdominal CT negative for acute processes. ITS Impressions Abdomen/Pelvis CT 08/14/16 20:27 IMPRESSION: No evidence of acute abnormality in the abdomen or pelvis. No evidence of metastatic disease. D/ / Wellington Nuno MD / Wellington Nuno MD Interpreting Provider: Wellington Nuno MD (6) Seroma of breast Current Visit: No Status: Chronic (7) Hypothyroid Current Visit: No Status: Chronic Assessment and plan: TSH elevated, free T4 normal. Synthroid dosage increased. (8) Chest pain Current Visit: Yes Status: Ruled-out Assessment and plan: Patient currently denies chest pain. ACS ruled out. Echocardiogram unremarkable with ejection fraction of 65%. Stress test negative for ischemia or infarct. We will continue to investigate other causes that are noncardiac in etiology. Qualifiers: Chest pain type: unspecified Qualified Code(s): R07.9 - Chest pain, unspecified (9) DVT prophylaxis Current Visit: Yes Status: Acute Assessment and plan: Subcutaneous heparin (10) Hypotension Current Visit: Yes Status: Resolved Assessment and plan: Patient stating she was started on clonidine one month ago for her diastolic blood pressures being in the 130s. Then approximately 2 weeks ago, she was started on spironolactone. She is currently normotensive but her blood pressures have been fluctuating since admission but evening out. Her blood pressure has been stable since yesterday. Orthostatic vital signs unremarkable. Currently, she is only on clonidine 0.1 mg twice a day. Holding her losartan and spironolactone. Unclear causation at this time. ACTH stim test unremarkable; aldosterone levels are pending. Renal function is normal. Qualifiers: Hypotension type: unspecified hypotension type Qualified Code(s): I95.9 - Hypotension, unspecified (11) Breast cancer, right Current Visit: No Status: Chronic Assessment and plan: Metastasis ruled out. Brain MRI negative. Abdominal CT unremarkable for acute processes. 08/14/16 Oncology has been brought on board as she is known well to their service. Concerning symptoms include severe headache 2 days associated with imbalance and vision changes. Brain MRI pending. Patient is also anorexic and has not been able to refill last 2 weeks so there is also a concern for possible metastases to her brain and possibly to her abdomen. Abdominal CT also pending. Her breast cancer has been complicated by lymphedema, chronic seroma of her breast, and a rather sizable blood clot after her breast surgery. - Subjective Interval history: Patient seen and examined. On examination, patient saying she feels "no better than when I came here." She states she continues to have intermittent, severe headaches that started 3 days ago. She now denies chest pain or epigastric pain. She still states that she has not been able to eat very much. No vomiting. - Constitutional Vitals: Temp Pulse Resp BP Pulse Ox 97.8 F 66 17 111/71 97 08/15/16 14:50 08/15/16 14:50 08/15/16 14:50 08/15/16 14:50 08/15/16 14:50 General appearance: Present: A&O X 3, pleasant, no acute distress, answers questions appropriately - Head Head exam: Present: atraumatic, normocephalic - Eye Eye exam: Present: EOMI, PERRL, conjuntiva pink, sclera anicteric Pupils: Present: PERRL - Neck Neck exam general surgery: Present: supple, trachea midline. Absent: lymphadenopathy - Respiratory Respiratory exam: Present: CTAB. Absent: accessory muscle use, rales, respiratory distress, rhonchi, wheezes - Cardiovascular Cardiovascular exam: Present: RRR, +S1, +S2. Absent: diastolic murmur, gallop, rubs, systolic murmur - GI/Abdominal GI/Abdominal exam: Present: normal bowel sounds, soft, no peritoneal signs. Absent: distended, tenderness - Extremities Exam Extremities exam: Present: warm, radial pulses palpable and symetrical. Absent : calf tenderness, cyanotic, pedal edema - Neurological Exam Neurological exam: Present: alert, CN II-XII intact, normal gait, oriented X3, no focal deficits, strengths equal and symetr throughout. Absent: pronater drift, facial droop, speech deficit - Skin Skin exam: Present: dry, intact, pallor, warm Internal Medicine: Result - Labs CBC & Chem 7: 08/13/16 18:20 08/13/16 18:20 Labs: Urine 08/14/16 Range/Units 23:00 Urine Color Yellow (Yellow) Urine Clarity Clear (Clear) Urine pH 6.0 (5.0-8.0) pH Units Ur Specific [place] > 1.030 H (1.010-1.025) Urine Protein Negative (Neg-Trace) mg/dL Urine Glucose (UA) Normal (Normal) mg/dL - ABG Interpretation ABG results: PT/INR, D-dimer PT 12.0 Seconds (9.4-12.1) 08/13/16 18:20 - Impressions Impressions Abdomen/Pelvis CT 08/14/16 20:27 IMPRESSION: No evidence of acute abnormality in the abdomen or pelvis. No evidence of metastatic disease. D/ / Wellington Nuno MD / Wellington Nuno MD Interpreting Provider: Wellington Nuno MD Brain MRI 08/15/16 09:05 IMPRESSION: 1. No evidence of acute intracranial abnormality. No evidence of intracranial metastatic disease. 2. Again seen is enhancing extra-axial mass along the medial right cerebellar tentorium compatible with meningioma. 3. Evidence of mild chronic microvascular ischemic changes. D/ / 08/15/2016 12:04:27 Dago Vasquez MD / lana Interpreting Provider: Dago Vasquez MD - VTE Reasons for not Prescribing Prophylaxis: Treatment not Indicated - Low risk for VTE Consult Discharge Plan - Plan Referrals: Jaylin Bradford CNP [Advanced Practice Nurse] - 08/20/16 1:00 pm Erik Herzog DO [Primary Care Provider] -
[2016-08-15] MEDS: *HR* LORazepam 1 MG TABLET PO SCH (23:11)
[2016-08-16] MEDS: *HR* Heparin 5,000 UNIT/ML VIAL SQ SCH (06:37)
[2016-08-16] MEDS: Pantoprazole 40 MG VIAL IVP SCH (06:37)
[2016-08-16] MEDS: *HR* Morphine 2 MG/ML SYRINGE IVP PRN (07:00)
[2016-08-16] MEDS: cloNIDine HCl 0.1 MG TABLET PO SCH (07:52)
[2016-08-16] MEDS: Aspirin 81 MG TAB.CHEW PO SCH (08:00)
--- NOTE | 2016-08-16 10:10 | Discharge Summary ---
Date of Encounter: 08/16/16 Time of Encounter: 09:00 - Discharge Diagnosis (1) Headache Priority: Primary Status: Resolved Comments: Patient denied headache on day of discharge. Was given migraine cocktail on the day prior to discharge. Follow-up outpatient. Qualifiers: Headache type: unspecified Headache chronicity pattern: acute headache Intractability: not intractable Qualified Code(s): R51 - Headache (2) History of Pippa fundoplication Priority: Secondary Status: Chronic (3) Calcified cerebral meningioma Priority: Secondary Status: Chronic (4) Vertigo Priority: Primary Status: Resolved (5) Anorexia Priority: Primary Status: Acute Comments: Still remained with slightly decreased by mouth intake but certainly adequate to maintain hydration. No vomiting. (6) Seroma of breast Priority: Secondary Status: Chronic (7) Hypothyroid Priority: Secondary Status: Chronic Comments: TSH elevated, free T4 normal. Synthroid dosage increased. Qualifiers: Hypothyroidism type: unspecified Qualified Code(s): E03.9 - Hypothyroidism , unspecified (8) Chest pain Priority: Primary Status: Ruled-out Comments: Patient denies chest pain. ACS ruled out. Echocardiogram unremarkable with ejection fraction of 65%. Stress test negative for ischemia or infarct. Qualifiers: Chest pain type: unspecified Qualified Code(s): R07.9 - Chest pain, unspecified (9) DVT prophylaxis Priority: Primary Status: Acute Comments: Subcutaneous heparin while admitted (10) Hypotension Priority: Primary Status: Resolved Qualifiers: Hypotension type: unspecified hypotension type Qualified Code(s): I95.9 - Hypotension, unspecified (11) Breast cancer, right Priority: Secondary Status: Chronic Qualifiers: Breast location: unspecified site of breast Patient sex: female Qualified Code(s): C50.911 - Malignant neoplasm of unspecified site of right female breast - Discharge Medications Home Medications: Aspirin 81 mg PO DAILY 12/17/14 [History] LORazepam [Ativan] 1 mg PO HS #30 tablet 08/12/16 [Rx] CloNIDine HCl 0.1 mg PO BID 08/13/16 [History] Cyanocobalamin (Vitamin B-12) [Vitamin B12] 1,000 mcg PO DAILY 08/13/16 [History ] Ergocalciferol (VITAMIN D2) [Vitamin D2] 50,000 unit PO WE 08/13/16 [History] Escitalopram [Lexapro] 20 mg PO DAILY 08/13/16 [History] Furosemide [Lasix] 20 mg PO BID PRN 08/13/16 [History] Levothyroxine [Synthroid] 75 mcg PO QAM 08/13/16 [History] Allergies/Adverse Reactions: Allergies gabapentin Adverse Reaction (Verified 08/13/16 17:30) See Comments swelling and lymphedema naproxen Adverse Reaction (Verified 08/13/16 20:25) Edema Procedures/tests Complete & Pending: Procedures Performed prior 72 hours Category Date Time Status CT abd pelvis w iv no oral [CT] Routine Cat Scan 08/14/16 20:27 Completed NM daysi perf SPECT multi [NM] Routine Exams 08/14/16 06:14 Taken MR head/brain wo/w con [MR] Routine MRI 08/15/16 09:05 Draft ECG 12 lead ECG [ECG] Routine Y 08/14/16 06:20 Completed EV echocardiogram Routine Y 08/13/16 23:37 Completed SP pharm nuclear stress Routine Y 08/14/16 01:21 Completed Date of admission: 08/13/16 21:13 Primary care physician: Erik Herzog Consults: 08/13/16 23:37 Consult to Nurse Navigator [CONS] Routine Comment: 08/15/16 15:59 Consult to Oncology [CONS] Routine Consulting Provider: Oncology [facility] Reason for Consult: patient known to you. Now has new, severe headaches and difficulty controlling her BP's. Call Completed: Yes 08/16/16 08:49 Consult to Neurology [CONS] Routine Consulting Provider: Neurology [facility] Reason for Consult: severe heaches. stable meningioma Call Completed: Yes Discharging clinician: Marlee Reynolds Anticipated date of discharge: 08/16/16 - Patient Status Disposition: Home, Self-Care Condition: Good Functional capacity at discharge: independent ambulation Overall status at discharge: patient is back to baseline - Discharge Instructions Follow Up With: Jaylin Bradford CNP [Advanced Practice Nurse] - 08/20/16 1:00 pm Erik Herzog DO [Primary Care Provider] - (appointment web requested ) Additional Instructions: Follow-up with primary care provider as scheduled. - Diet and Activity Activity: increase activity as tolerated Diet: low fat, low cholesterol, low salt diet Hospital course: Ms. Mcguire is a 65 year old female with past medical history of breast cancer in remission, CAD, hypertension, lichen planus, close cystectomy, history of Pippa fundoplication. Patient presented to emergency department chief complaint 24 hours of lightheadedness, dizziness, hypotension, and chest pressure. Patient also endorsed headache, blurred vision, and weakness. Patient stating her symptoms were worsened with standing too quickly. Patient stating her headache is located behind both of her eyes. She also described chest pain as substernally located, nonradiating, not associated with numbness, nausea or vomiting. Patient stating the chest pain is similar to what she had had when she had her heart attack in 2007. Patient also endorsed a couple week history of decreased appetite without nausea or vomiting. Her blood pressure medications at home have recently been changed, one month ago, she was started on clonidine in 2 weeks ago she was started on spironolactone. Workup in the emergency department unremarkable. Chest x-ray negative. Head CT negative for acute processes. Patient was admitted to the hospitalist service for further evaluation and management. Regarding her chest pain, troponins were negative, echocardiogram unremarkable with ejection fraction of 65%. Stress test negative. Acute coronary syndrome ruled out. Elevated TSH noted with normal free T4, her Synthroid dosage was increased. Patient was able to tolerate a regular diet during this admission. She continued to have abdominal pains abdominal CT was obtained which was negative for acute processes. For her headache, this was a new symptom for the patient and given her history of breast cancer, brain MRI was obtained which showed a stable meningioma. She was seen and evaluated by neurology who cleared her for outpatient follow-up. She had an upright and steady gait throughout this admission. Regarding her hypotension, her spironolactone and losartan were both held and her blood pressure remained stable. Orthostatic vital signs unremarkable. ACTH stem test unremarkable. Renal functioning remained normal during this admission. She was treated with a migraine cocktail on the day prior to discharge, and her headache subsided. Oncology was brought on board during this admission for concerns of possible metastasis which was ruled out. She was discharged home in stable condition with close outpatient follow-up recommended. She was instructed to check her blood pressure daily, keep a log, and follow-up with her primary care team. ITS Impressions Chest X-Ray 08/13/16 17:48 IMPRESSION: Unremarkable D/ / Magno Matias MD / Magno Matias MD Interpreting Provider: Magno Matias MD Head CT 08/13/16 17:50 IMPRESSION: No acute intracranial abnormality. Probable 14 mm meningioma adjacent to the tentorium cerebelli D/ / iMke Gama MD / Mike Gama MD Interpreting Provider: Mike Gama MD Abdomen/Pelvis CT 08/14/16 20:27 IMPRESSION: No evidence of acute abnormality in the abdomen or pelvis. No evidence of metastatic disease. D/ / Wellington Nuno MD / Wellington Nuno MD Interpreting Provider: Wellington Nuno MD Brain MRI 08/15/16 09:05 IMPRESSION: 1. No evidence of acute intracranial abnormality. No evidence of intracranial metastatic disease. 2. Again seen is enhancing extra-axial mass along the medial right cerebellar tentorium compatible with meningioma. 3. Evidence of mild chronic microvascular ischemic changes. D/ / 08/15/2016 12:04:27 Dago Vasquez MD / lana Interpreting Provider: Dago Vasquez MD Echocardiogram impressions: LVEF 65%. Normal LV wall motion. Normal left ventricle size and systolic function. There is evidence of mild diastolic dysfunction of the left ventricle. Normal right ventricular size and function. Mild mitral regurgitation. No pulmonary hypertension. Nuclear stress test impression: Perfusion imaging was negative for ischemia or infarct. No appreciable change in pharmacologic ECG from baseline. Patient had 7/10 chest pain prior to starting the study, increasing 10 over 10 with pharmacologic infusion which is not diagnostic. Normal gated ejection fraction. - Time Spent with Patient Total time spent providing and/or coordinating discharge services: - Constitutional Vitals: Temp Pulse Resp BP Pulse Ox 97.8 F 57 16 133/78 96 08/16/16 06:58 08/16/16 06:58 08/16/16 06:58 08/16/16 06:58 08/16/16 07:50 General appearance: Present: A&O X 3, pleasant, no acute distress, answers questions appropriately - Head Head exam: Present: atraumatic, normocephalic - Eye Eye exam: Present: PERRL, conjuntiva pink, sclera anicteric Pupils: Present: PERRL - Neck Neck exam general surgery: Present: supple, trachea midline. Absent: lymphadenopathy - Respiratory Respiratory exam: Present: CTAB. Absent: accessory muscle use, rales, respiratory distress, rhonchi, wheezes - Cardiovascular Cardiovascular exam: Present: RRR, +S1, +S2. Absent: diastolic murmur, gallop, rubs, systolic murmur - GI/Abdominal GI/Abdominal exam: Present: normal bowel sounds, soft, no peritoneal signs. Absent: distended, tenderness - Extremities Exam Extremities exam: Present: warm, radial pulses palpable and symetrical. Absent : calf tenderness, cyanotic, pedal edema - Neurological Exam Neurological exam: Present: alert, CN II-XII intact, normal gait, oriented X3, no focal deficits, strengths equal and symetr throughout. Absent: pronater drift, facial droop, speech deficit - Skin Skin exam: Present: dry, intact, normal color, warm - VTE Reasons for not Prescribing Prophylaxis: Treatment not Indicated - Low risk for VTE
--- NOTE | 2016-08-16 10:18 | Neurology - Consult Note ---
Date of Encounter: 08/16/16 Time of Encounter: 10:14 Assessment and Plan (1) Headache Current Visit: Yes Status: Resolved I suspect that her headaches are likely multifactorial, perhaps associated with the nitro used to treat her chest pain. Perhaps a low-pressure component associated with orthostasis. The memingioma is stable and non-contributory. It is been stable for number of years and is not impinging upon any vital structures. No evidence of any acute RN PALLIATIVE CARE process otherwise. He may discharge her at her discretion. I will follow with her on an as-needed basis. The documentation in the history of HPI and plan were at least partially created by [employer] recognition technology by Dr. Morrison. Errors in grammar, wording or other phrases may exist. If errors are found after the documentation signed, they will be addressed individually in the addendum section of this document when appropriate. Qualifiers: Headache type: unspecified Headache chronicity pattern: acute headache Intractability: not intractable Qualified Code(s): R51 - Headache History of Present Illness HPI: Ms. Mcguire is a 65 year old female who was seen for neurologic consultation due to complaints of headache. Tone is previously known to me due to a meningioma of the right cerebellar tentorium. Not incontinent several years. Since our last encounter she has endured breast cancer. MRI studies of the brain at that time did not reveal evidence of metastatic disease. MRI scan of the brain completed with this admission reveals a stable meningioma involving the right cerebellar tentorium, no evidence of metastatic disease, no evidence of a hemorrhagic process, chronic deep white matter ischemic changes present. No edema is present no mass effect is present. The ventricular system is normal in appearance. Tunnel was admitted this time for chest pain or discomfort. Blood pressures have also been running on the low side. She has mentioned feeling lightheaded which I equate with orthostasis. She states that she felt lightheaded when standing and walking. She is not actually lost consciousness or passed out. The headaches may have been associated with nitroglycerin use to treat chest pain and discomfort. She currently feels back to her normal baseline and is anxious to be discharged home. Laboratory analysis reveals normal chemistries however her lipid profile is consistent with hyperlipidemia. Urinalysis revealed small amount of leukocyte esterase no bacteria were seen. Past Med Surg Social Fam HX - Past Medical History Medical history: cancer, coronary artery disease, hyperlipidemia, hypertension, other Psychiatric history: depression - Past Surgical History Surgical History: angioplasty/stent, breast surgery, cholecystectomy, other - Social History Smoking Status: Former smoker Smokeless Tobacco Status: No Alcohol use: none Drug use: none - Family History Mother Hx Family Cancer: Yes (breast) Sister Hx Family Cancer: Yes (breast lymphoma) Medications and Allergies Aspirin 81 mg PO DAILY 12/17/14 [History] Losartan Potassium [Cozaar] 100 mg PO DAILY 12/17/14 [History] LORazepam [Ativan] 1 mg PO HS #30 tablet 08/12/16 [Rx] CloNIDine HCl 0.1 mg PO BID 08/13/16 [History] Cyanocobalamin (Vitamin B-12) [Vitamin B12] 1,000 mcg PO DAILY 08/13/16 [History ] Ergocalciferol (VITAMIN D2) [Vitamin D2] 50,000 unit PO WE 08/13/16 [History] Escitalopram [Lexapro] 20 mg PO DAILY 08/13/16 [History] Furosemide [Lasix] 20 mg PO BID PRN 08/13/16 [History] Levothyroxine [Synthroid] 75 mcg PO QAM 08/13/16 [History] Allergies gabapentin Adverse Reaction (Verified 08/13/16 17:30) See Comments swelling and lymphedema naproxen Adverse Reaction (Verified 08/13/16 20:25) Edema All Systems: A 10-system review of systems was performed and is negative for pertinent findings except as documented above in the HPI. Review of Systems: 10 point review of systems is consistent with a history of present illness and otherwise negative. Physical Examination - Vital Signs Vital Signs: Initial Vital Signs Temp Pulse Resp BP Pulse Ox 97.1 F L 65 16 145/93 97 08/13/16 17:28 08/13/16 17:28 08/13/16 17:28 08/13/16 17:28 08/13/16 17:28 - Neurologic Detailed motor examination: full strength in all major muscle groups Motor examination - right side: 5/5: deltoids, biceps, triceps, wrist flexion, wrist extension, capacity manager, hip flexors, tibialis Anterior, quadriceps, toe extension (EHL), plantarflexion Motor examination - left side: 5/5: deltoids, biceps, triceps, wrist flexion, wrist extension, hip flexors, capacity manager, quadriceps, tibialis Anterior, toe extension (EHL), plantarflexion Reflexes: Biceps: 2+, Triceps: 2+, Brachioradialis: 2+, Patella: 2+, Achilles: 2 + Mental Status Examination: awake, alert, oriented to person, oriented to place, oriented to time, follows commands appropriately, answers questions appropriately, no agnosia, no aphasia, no aproxia Cranial nerve examination: PERRL, EOMI, visual no intact, corneal reflexes brisk symmetrically, sensory to face intact, mastication intact, no facial asymmetry is present, no dysarthria, hearing is intact symmetrically, soft palate elevates bilaterally upon phonation, gag reflex intact, flexes SCM and trapezius muscles symmetrically with full power, tongue protrudes midline, no atrophy or facial fasiculations present Cerebellar examination: no dysmetria, performs finger to nose and heel to thorpe symmetrically without ataxia, no gait ataxia, no truncal ataxia, no difficulty with rapid alternating movements Results - Laboratory Findings CBC and BMP: 08/13/16 18:20 08/13/16 18:20 Abnormal lab findings: Abnormal lab results Triglycerides 153 mg/dL (< 150) H 08/14/16 00:35 Cholesterol 208 mg/dL (< 200) H 08/14/16 00:35 LDL Cholesterol, Calc 137 mg/dL (0-99) H 08/14/16 00:35 VLDL Cholesterol, Calc 31 mg/dL (< 31) H 08/14/16 00:35 Cholesterol/HDL Ratio 5.2 (0-4.9) H 08/14/16 00:35 TSH 15.466 mcIU/mL (0.350-4.840) H 08/14/16 06:26 Ur Specific [place] > 1.030 (1.010-1.025) H 08/14/16 23:00 Ur Leukocyte Esterase Small (Negative) H 08/14/16 23:00 Urine Microscopic RBC 3-5 per hpf (0-3) H 08/14/16 23:00 Urine Microscopic WBC 15-30 per hpf (0-3) H 08/14/16 23:00 Ur Squamous Epith Cells Many per lpf (None-Few) H 08/14/16 23:00 Ur Culture Indicated? YES (NO) A 08/14/16 23:00 Consult Discharge Plan - Plan Referrals: Jaylin Bradford CNP [Advanced Practice Nurse] - 08/20/16 1:00 pm Erik Herzog DO [Primary Care Provider] -
[2016-08-19 10:30] VITALS: BP 133/78
== END 2016-08-16 11:20 | disposition home or self-care (01) ==
LOC: EMEROO 17:16 → 3BNU 17:16
PROVIDERS: ADMIT Nurse Practitioner Family; ATTEND Nurse Practitioner Family

== ENCOUNTER 2020-01-23 15:18 | Observation (INO) ==
[2020-01-23] MEDS ORDERED: Aspirin 81 MG TAB.CHEW PO ONE (15:44)
[2020-01-23 16:08] LABS: Basophils # 0.1 K/mcL (0.0-0.2); Basophils % 0.6 %; Eosinophils # 0.2 K/mcL (0.0-0.6); Eosinophils % 2.6 %; Hematocrit 45.7 % (35.3-44.9); Hemoglobin 14.9 g/dL (11.5-15.4); Immature Granulocytes % 0.5 % (0-4); Lymphocytes # 1.5 K/mcL (0.6-4.6); Mean Corpuscular HGB Conc 32.6 g/dL (31.6-35.5); Mean Corpuscular Hemoglobin 29.6 pg (28.0-33.3); Mean Corpuscular Volume 90.9 fL (83.0-100.0); Mean Platelet Volume 10.7 fL (9.4-12.4); Monocytes # 0.7 K/mcL (0.0-1.3); Monocytes % 8.2 %; Neutrophils # 5.6 K/mcL (1.6-8.9); Platelet Count 273 K/mcL (140-400); Red Blood Count 5.03 M/mcL (3.82-4.97); Red Cell Distribution Width 13.3 % (11.5-14.5); Segmented Neutrophils % 69.1 %; White Blood Count 8.1 K/mcL (4.3-11.1)
[2020-01-23 16:11] LABS: Bilirubin,Urine Negative (Negative); Blood,Urine Negative (Negative); Clarity,Urine Clear (Clear); Glucose,Urine (UA) Normal (Normal); Ketones,Urine Negative (Negative); Leukocyte Esterase,Urine Negative (Negative); Nitrite,Urine Negative (Negative); Protein,Urine Negative (Neg-Trace); Urobilinogen,Urine Normal (Normal)
[2020-01-23 16:14] LABS: Color,Urine Colorless (Yellow)
[2020-01-23 16:16] LABS: INR 1.1; Prothrombin Time 12.3 Seconds (9.4-12.1)
[2020-01-23 16:19] LABS: Activated Partial Thrombo Time 33.6 Seconds (26.0-36.0)
[2020-01-23 16:28] LABS: Alanine Aminotransferase 18 Units/L (7-52); Albumin 4.6 g/dL (3.5-5.7); Albumin/Globulin Ratio 2.3 (1.1-2.2); Alkaline Phosphatase 64 Units/L (34-104); Aspartate Amino Transferase 14 Units/L (13-39); BUN/Creatinine Ratio 17 (6-26); Bilirubin,Direct 0.1 mg/dL (0.0-0.2); Bilirubin,Indirect 0.3 mg/dL (0.0-1.0); Bilirubin,Total 0.4 mg/dL (0.3-1.0); Blood Urea Nitrogen 15 mg/dL (8-23); Calcium 9.7 mg/dL (8.6-10.3); Carbon Dioxide 28 mEq/L (23-29); Chloride 105 mEq/L (98-107); Glucose 100 mg/dL (70-105); Lipase 32 Units/L (11-82); Osmolality,Calculated 291 (280-300); Potassium 3.9 mEq/L (3.5-5.1); Sodium 140 mEq/L (136-145); Total Protein 6.6 g/dL (6.4-8.9); Troponin I < 0.03 ng/mL (< 0.04); eGFR For African Americans > 60 (> 60); eGFR For Non-African Americans > 60 (> 60)
[2020-01-23] MEDS ORDERED: Naloxone 0.4 MG/ML INJ IVP PRN (16:54)
[2020-01-23] MEDS ORDERED: Acetaminophen 325 MG TABLET PO PRN (16:54)
[2020-01-23] MEDS ORDERED: Nitroglycerin 0.4 MG TAB.SUBL SL PRN (16:54)
[2020-01-23] MEDS ORDERED: Perflutren Lipid Microsphere 1.3 ML in 0.9 % Sodium Chloride 8.7 ML IVP PRN (16:54)
[2020-01-23] MEDS ORDERED: Ergocalciferol (VIT D2) 50,000 UNIT (1.25MG) CAP PO SCH (18:15)
[2020-01-23] MEDS ORDERED: NIFEdipine 10 MG CAPSULE PO ONE (20:14)
[2020-01-23] MEDS ORDERED: *HR* LORazepam 1 MG TABLET PO SCH (21:00)
[2020-01-23] MEDS: Fluticasone Propionate Nasal 50 MCG/SPRAY BOTTLE NS SCH (21:19)
[2020-01-23] MEDS ORDERED: *HR* Promethazine 25 MG/ML VIAL IVP ONE (21:25)
[2020-01-24 01:46] LABS: Hematocrit 47.4 % (35.3-44.9); Hemoglobin 15.6 g/dL (11.5-15.4); Mean Corpuscular HGB Conc 32.9 g/dL (31.6-35.5); Mean Corpuscular Hemoglobin 30.1 pg (28.0-33.3); Mean Corpuscular Volume 91.3 fL (83.0-100.0); Mean Platelet Volume 10.8 fL (9.4-12.4); Platelet Count 258 K/mcL (140-400); Red Blood Count 5.19 M/mcL (3.82-4.97); Red Cell Distribution Width 13.3 % (11.5-14.5); White Blood Count 8.8 K/mcL (4.3-11.1)
[2020-01-24 02:10] LABS: BUN/Creatinine Ratio 16 (6-26); Blood Urea Nitrogen 15 mg/dL (8-23); Calcium 9.4 mg/dL (8.6-10.3); Carbon Dioxide 26 mEq/L (23-29); Chloride 107 mEq/L (98-107); Glucose 100 mg/dL (70-105); Magnesium 2.2 mg/dL (1.6-2.6); Osmolality,Calculated 295 (280-300); Potassium 3.6 mEq/L (3.5-5.1); Sodium 142 mEq/L (136-145); eGFR For African Americans > 60 (> 60); eGFR For Non-African Americans 59 (> 60)
[2020-01-24 02:11] LABS: Troponin I < 0.03 ng/mL (< 0.04)
[2020-01-24] MEDS ORDERED: *HR* Heparin 5,000 UNIT/ML VIAL SQ SCH (06:00)
[2020-01-24] MEDS ORDERED: Regadenoson 0.4 MG/5 ML SYRINGE IVP ONE (07:49)
[2020-01-24] MEDS ORDERED: Aspirin 81 MG TAB.CHEW PO SCH (09:00)
[2020-01-24] MEDS ORDERED: Furosemide 40 MG TABLET PO SCH (09:00)
[2020-01-24] MEDS: Fluticasone Propionate Nasal 50 MCG/SPRAY BOTTLE NS SCH (11:24)
[2020-01-24] MEDS ORDERED: Ibuprofen 600 MG TABLET PO ONE (12:01)
[2020-01-24 15:20] VITALS: BP 136/77
[2020-01-25] MEDS ORDERED: Ergocalciferol (VIT D2) 50,000 UNIT (1.25MG) CAP PO SCH (09:00)
== END 2020-01-24 16:41 | disposition home or self-care (01) ==
LOC: EMEROOARM 15:18 → 3BNU 15:18 → SUATTDRO 16:57 → 3BNU 17:37
PROVIDERS: ADMIT Student in an Organized Health Care Education/Training Program; ATTEND Nurse Practitioner Adult Health